=== PATIENT | female | born 1930 | race Caucasian/White ===

== ENCOUNTER 2017-01-26 08:48 | Emergency (ER) | payer MEDICARE, OTHER ==
[2017-01-26 09:02] VITALS: BP 191/78
--- NOTE | 2017-01-26 10:11 | EDM.PDOC ---
ED HPI Trauma - General Chief Complaint: Lower Extremity Injury/Pain Stated Complaint: [facility] Time Seen by Provider: 01/26/17 10:10 - History of Present Illness INITIAL COMMENTS - FREE TEXT/NARRATIVE: 86-year-old female presents emergency room by EMS after falling. Patient has significant right hip pain she does not know why she fell. She bent forward to pickle cutter a stick and fell backwards. She did not have any lightheadedness or palpitations at the time. After this the patient could not get up and she scooted on her bottom to the front door and attempted to get help. Patient has a history of bilateral hip replacements. Allergies/ADRs: Allergies No Known Allergies Allergy (Verified 01/26/17 09:02) Home Medications: Ambulatory Orders Bisoprolol/Hydrochlorothiazide [Ziac 2.5-6.25 MG] 1 tab PO DAILY 01/26/17 [ Confirmed 01/26/17] Gabapentin [Neurontin] 100 mg PO TID 01/26/17 [Confirmed 01/26/17] Levothyroxine [Synthroid] 100 mcg PO ACBREAKFAST 01/26/17 [Confirmed 01/26/17] Lisinopril 20 mg PO DAILY 01/26/17 [Confirmed 01/26/17] Potassium Chloride 10 meq PO DAILY 01/26/17 [Confirmed 01/26/17] Simvastatin [Zocor] 40 mg PO BEDTIME 01/26/17 [Confirmed 01/26/17] busPIRone [Buspar] 5 mg PO TID 01/26/17 [Confirmed 01/26/17] glyBURIDE [Glyburide] 5 mg PO DAILY 01/26/17 [Confirmed 01/26/17] traZODone 1 tab PO BEDTIME PRN 01/26/17 [Confirmed 01/26/17] Past Medical History HEENT History: Reports: Hard of hearing, Impaired vision Other HEENT History: wears corrective lenses Cardiovascular History: Reports: High cholesterol, Hypertension Genitourinary History: Reports: Diabetic nephropathy 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 Denies: Shortness of Breath Cardiovascular: Reports: no symptoms. Denies: chest pain, edema GI/Abdominal: Reports: No symptoms. Denies: Abdominal pain, Constipation, Diarrhea, Nausea, Vomiting Genitourinary: Reports: no symptoms. Denies: dysuria, hematuria, painful urination Musculoskeletal: Reports: no symptoms Trauma Exam - Physical Exam Exam: See Below Exam Limited By: No limitations General Appearance: Reports: alert, no apparent distress Head: Reports: atraumatic, normocephalic Neck: Reports: non-tender, full range of motion, normal inspection. 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, no motor/sensory deficits (Kelechi limited because of right hip pain) Skin: Reports: Other (She has some abrasions over her left knuckles as a result of the fall otherwise has good range of motion of these digits) - [place] Coma Score Best Eye Response ([place]): (4) open spontaneously Best Verbal Response ([place]): (5) oriented Best Motor Response ([place]): (6) obeys commands EKG INTERPRETATION EKG Date: 01/26/17 Rhythm: NSR [place]: normal P-wave: present QRS: normal ST-T: other (Nonspecific nondiagnostic ST depression inferiorly laterally with ST elevation is nondiagnostic in aVR) Course - Vital Signs Last Recorded V/S: Last Vital Signs Temp 37.1 C 01/26/17 08:57 Pulse 78 01/26/17 08:57 Resp 18 01/26/17 08:57 BP 191/78 H 01/26/17 08:57 Pulse Ox 94 L 01/26/17 08:57 - Orders/Labs/Meds Orders: Active Orders 24 hr Category Date Time Status EKG Documentation Completion [RC] STAT Care 01/26/17 12:18 Active Lactated Ringers [Ringers, Lactated] 1,000 ml Med 01/26/17 12:45 Active IV ASDIRECTED Medication Orders Lactated Ringer's (Ringers, Lactated) 1,000 mls @ 75 mls/hr IV ASDIRECTED FELICIA Last Admin: 01/26/17 13:14 Dose: 75 mls/hr Labs: Laboratory Tests 01/26/17 01/26/17 01/26/17 Range/Units 11:35 12:30 12:32 WBC 13.66 H (3.98-10.04) K/mm3 RBC 4.34 (3.98-5.22) M/mm3 Hgb 14.0 (11.2-15.7) gm/L Hct 41.6 (34.1-44.9) % MCV 95.9 H (79.4-94.8) fl MCH 32.3 H (25.6-32.2) pg MCHC 33.7 (32.2-35.5) g/dl RDW Std Deviation 43.8 (36.4-46.3) fL Plt Count 172 L (182-369) K/mm3 MPV 9.4 (9.4-12.3) fl Neutrophils % (Manual) 96 H (40-60) % Band Neutrophils % 0 (0-10) % Lymphocytes % (Manual) 2 L (20-40) % Atypical Lymphs % 0 % Monocytes % (Manual) 2 (2-10) % Eosinophils % (Manual) 0 L (0.7-5.8) % Basophils % (Manual) 0 L (0.1-1.2) Differential Comment See note Platelet Estimate Adequate RBC Morph Comment Normal Sodium (136-145) mEq/L Potassium (3.5-5.1) mEq/L Chloride (98-107) mEq/L Carbon Dioxide (21-32) mEq/L Anion Gap (5-15) BUN (7-18) mg/dL Creatinine (0.55-1.02) mg/dL Est Cr Clr Drug Dosing mL/min Estimated GFR (MDRD) (>60) mL/min BUN/Creatinine Ratio (14-18) Glucose (83-115) mg/dL Calcium (8.5-10.1) mg/dL Total Bilirubin (0.2-1.0) mg/dL AST (15-37) U/L ALT (14-59) U/L Alkaline Phosphatase (46-116) U/L Troponin I 0.040 (0.00-0.056) ng/mL Total Protein (6.4-8.2) g/dl Albumin (3.4-5.0) g/dl Globulin gm/dL Albumin/Globulin Ratio (1-2) Urine Color Yellow (Yellow) Urine Appearance Clear (Clear) Urine pH 7.0 (5.0-8.0) Ur Specific [place] 1.025 (1.005-1.030) Urine Protein 3+ H (Negative) Urine Glucose (UA) Trace H (Negative) Urine Ketones Negative (Negative) Urine Occult Blood Trace-lysed H (Negative) Urine Nitrite Negative (Negative) Urine Bilirubin Negative (Negative) Urine Urobilinogen 0.2 (0.2-1.0) Ur Leukocyte Esterase Negative (Negative) Urine RBC 0-5 (0-5) /hpf Urine WBC 0-5 (0-5) /hpf Ur Epithelial Cells 0-5 (0-5) /hpf Urine Bacteria Few (FEW) /hpf Urine Mucus Few (FEW) /hpf 01/26/17 Range/Units 12:32 WBC (3.98-10.04) K/mm3 RBC (3.98-5.22) M/mm3 Hgb (11.2-15.7) gm/L Hct (34.1-44.9) % MCV (79.4-94.8) fl MCH (25.6-32.2) pg MCHC (32.2-35.5) g/dl RDW Std Deviation (36.4-46.3) fL Plt Count (182-369) K/mm3 MPV (9.4-12.3) fl Neutrophils % (Manual) (40-60) % Band Neutrophils % (0-10) % Lymphocytes % (Manual) (20-40) % Atypical Lymphs % % Monocytes % (Manual) (2-10) % Eosinophils % (Manual) (0.7-5.8) % Basophils % (Manual) (0.1-1.2) Differential Comment Platelet Estimate RBC Morph Comment Sodium 142 (136-145) mEq/L Potassium 3.5 (3.5-5.1) mEq/L Chloride 104 (98-107) mEq/L Carbon Dioxide 27 (21-32) mEq/L Anion Gap 14.5 (5-15) BUN 14 (7-18) mg/dL Creatinine 0.9 (0.55-1.02) mg/dL Est Cr Clr Drug Dosing 42.02 mL/min Estimated GFR (MDRD) 59 (>60) mL/min BUN/Creatinine Ratio 15.6 (14-18) Glucose 202 H (83-115) mg/dL Calcium 9.1 (8.5-10.1) mg/dL Total Bilirubin 1.5 H (0.2-1.0) mg/dL AST 29 (15-37) U/L ALT 35 (14-59) U/L Alkaline Phosphatase 75 (46-116) U/L Troponin I (0.00-0.056) ng/mL Total Protein 6.6 (6.4-8.2) g/dl Albumin 4.0 (3.4-5.0) g/dl Globulin 2.6 gm/dL Albumin/Globulin Ratio 1.5 (1-2) Urine Color (Yellow) Urine Appearance (Clear) Urine pH (5.0-8.0) Ur Specific [place] (1.005-1.030) Urine Protein (Negative) Urine Glucose (UA) (Negative) Urine Ketones (Negative) Urine Occult Blood (Negative) Urine Nitrite (Negative) Urine Bilirubin (Negative) Urine Urobilinogen (0.2-1.0) Ur Leukocyte Esterase (Negative) Urine RBC (0-5) /hpf Urine WBC (0-5) /hpf Ur Epithelial Cells (0-5) /hpf Urine Bacteria (FEW) /hpf Urine Mucus (FEW) /hpf Meds: Medications Generic Name Dose Route Start Last Admin Trade Name Freq PRN Reason Stop Dose Admin Lactated Ringer's 1,000 mls @ 75 mls/hr 01/26/17 12:45 01/26/17 13:14 Ringers, Lactated IV 75 mls/hr ASDIRECTED [facility] Administration - Re-Assessments/Exams Free Text/Narrative Re-Assessment/Exam: 01/26/17 12:27 X-ray shows a fracture at the distal end of the prosthesis of the right hip. Minimally displaced. Patient was seen by Dr. Casey today with orthopedics who recommends admission to the hospitalist service and he anticipates surgical repair on Thursday. The patient seems to be otherwise doing okay. She is not having pain and needs to be treated at this time but we will monitor for this lab work and EKG pending. We are waiting to find a hospital bed for her. 01/26/17 15:43 Patient situation discussed with the hospitalist, Dr. Maharaj, who discussed situation with Dr. Casey today and given the complexity of the surgery anticipated and her medical problems they felt the patient would have more appropriate care in [place]. Patient's case was discussed with Dr. Laboy hospitalist at [facility] in [place] who discussed the situation with on-call orthopedics in [place] and they both agree with excepting the patient. Departure - Departure Time of Disposition: 12:29 Disposition: DC/[facility]fer to [facility] 02 Clinical Impression: Periprosthetic fracture around internal prosthetic right hip joint Referrals: Anjali Naayk NP [Primary Care Provider] - Forms: ED Department Discharge - My Orders Last 24 Hours: My Active Orders 01/26/17 12:18 EKG Documentation Completion [RC] STAT 01/26/17 12:45 Lactated Ringers [Ringers, Lactated] 1,000 ml IV ASDIRECTED - Assessment/Plan Last 24 Hours: My Active Orders 01/26/17 12:18 EKG Documentation Completion [RC] STAT 01/26/17 12:45 Lactated Ringers [Ringers, Lactated] 1,000 ml IV ASDIRECTED
--- NOTE | 2017-01-26 10:48 | CR ---
Pelvis and right hip: AP view of the pelvis was obtained as well as AP and frog-leg lateral views and lateral view of the right hip. Comparison: No previous study. Bilateral hip prosthesis are seen. Fracture is identified off the distal stem of a right hip prosthesis extending through the lateral cortex. No significant displacement seen at this time. Heterotopic bone noted around the right hip. Bony structures are osteopenic. Degenerative change is seen within the lumbar spine. Vascular calcification is seen. Impression: 1. Acute fracture off the distal femoral stem of a right hip prosthesis. 2. Other incidental findings as noted above. Diagnostic code #3
[2017-01-26] MEDS ORDERED: Lactated Ringers 1,000 ML IV SCH (12:45)
[2017-01-26] MEDS ORDERED: Ondansetron 4 MG/2 ML SDV IVPUSH ONE (15:53)
[2017-01-26] MEDS ORDERED: HYDROmorphone 0.5 MG/0.5 ML Syringe IVPUSH ONE (15:54)
== END 2017-01-26 16:24 ==
LOC: JD.ED 08:48
DX: S72.401A Unspecified fracture of lower end of right femur, initial encounter for closed fracture (principal); M97.01XA Periprosthetic fracture around internal prosthetic right hip joint, initial encounter; W18.39XA Other fall on same level, initial encounter; Y93.89 Activity, other specified; Y92.017 Garden or yard in single-family (private) house as the place of occurrence of the external cause; E78.00 Pure hypercholesterolemia, unspecified; I10 Essential (primary) hypertension; E11.21 Type 2 diabetes mellitus with diabetic nephropathy; Z79.899 Other long term (current) drug therapy
CPT/HCPCS: 36415; 51702; 73502; 80053; 81001; 82962; 84484; 85025; 93005; 96361; 96374; 96375; 99285; J1170; J2405; J7120; 99284

== ENCOUNTER 2017-09-30 07:55 | Emergency (ER) | payer MEDICARE, OTHER ==
[2017-09-30] MEDS ORDERED: Sodium Chloride 0.9% 10 ML Syringe FLUSH PRN (08:43)
[2017-09-30] MEDS ORDERED: Ondansetron 4 MG/2 ML SDV IVPUSH ONE (08:44)
[2017-09-30] MEDS ORDERED: HYDROmorphone 0.5 MG/0.5 ML Syringe IVPUSH ONE (08:45)
[2017-09-30] MEDS ORDERED: Labetalol 100 MG/20 ML MDV IVPUSH ONE (08:46)
[2017-09-30 09:16] VITALS: BP 176/71
[2017-09-30] MEDS ORDERED: Iopamidol 755 Mg/ML 100 ML Bottle IVPUSH ONE (10:24)
[2017-09-30] MEDS ORDERED: Sodium Chloride 0.9% 10 ML Syringe FLUSH ONE (10:24)
[2017-09-30] MEDS ORDERED: Sodium Chloride 0.9% 100 ML IV SCH (10:30)
--- NOTE | 2017-09-30 10:44 | CR ---
Chest: Two views of the chest were obtained. Comparison: Prior chest x-ray of 02/01/11. Lungs are hyperinflated compatible with emphysematous change. Small nodule noted within the right midlung which is stable from prior exam and therefore incidental. No acute infiltrates are seen. Scattered degenerative spurring is noted within the spine with mild scoliosis. Heart size appears within normal limits. Impression: 1. Emphysematous change. Nothing acute is appreciated on two-view chest x-ray. Diagnostic code #2
[2017-09-30] MEDS ORDERED: Metoclopramide 10 MG/2 ML SDV IVPUSH ONE (11:05)
--- NOTE | 2017-09-30 11:20 | CT ---
CT chest Technique: Multiple axial sections through the chest were obtained. Intravenous contrast was utilized. Study has been performed as a pulmonary angiogram protocol. Comparison: Previous chest x-ray performed earlier on the same day, no prior chest CT. Findings: Pulmonary arteries are well-opacified. No filling defects are seen to indicate pulmonary embolism. Mediastinum and hilar regions show no adenopathy or mass. Moderately severe coronary artery calcification is seen. Heart is enlarged. Small portion of the visualized upper abdominal structures appears within normal limits. 2 nodules are identified within the right lower lung. Larger nodule measures 7 mm and adjacent nodule also measures 7 mm. Very small subpleural nodule is noted within the right middle lobe measuring 2 mm. Additional nodule is seen within the superior segment of the right lower lobe measuring 4.7 mm Coarse lung markings are noted within both lung bases most likely representing mild fibrosis with scarring. Lungs otherwise are clear. Bone window setting show scattered degenerative endplate spurring within the spine. Impression: 1. Pulmonary nodules within the right chest. Given the patient's age these are likely incidental. 2. No findings of pulmonary embolism. 3. Moderately severe coronary artery calcification and cardiomegaly. Diagnostic code #3
--- NOTE | 2017-09-30 11:51 | EDM.PDOC ---
ED HPI GENERAL MEDICAL PROBLEM - General Chief Complaint: Back Pain or Injury Stated Complaint: UPPER BACK PAIN Time Seen by Provider: 09/30/17 08:36 Source of Information: Reports: Patient History Limitations: Reports: No Limitations - History of Present Illness INITIAL COMMENTS - FREE TEXT/NARRATIVE: The patient presents with left upper back pain. This has been there for about 2 weeks. She denies any trauma. She did not fall, lift or twist. She has no fever, chest pain, cough, shortness of breath, abdominal pain, nausea, vomiting , numbness or weakness. She says the pain is worse at night when she is laying down. Onset: Gradual Duration: Week(s): (2) Location: Reports: Back (Upper left) Quality: Reports: Sharp Severity: Moderate Improves with: Reports: None Worsens with: Reports: Other (Laying down at night) Associated Symptoms: Reports: No Other Symptoms - Related Data Allergies Allergy/AdvReac Type Severity Reaction Status Date / Time No Known Allergies Allergy Verified 09/30/17 08:08 Home Meds: Home Meds Acetaminophen 2 tab PO Q4H PRN 09/30/17 [History] Acetaminophen [Tylenol] 650 mg PO 2100 09/30/17 [History] Aspirin [[place] Aspirin] 81 mg PO DAILY 09/30/17 [History] Aspirin/Sod Bicarb/Citric Acid [[place]iyah-Qu[place] Original] 2 tab PO BID PRN [History] Bisoprolol/Hydrochlorothiazide [Ziac 2.5-6.25 MG] 1 tab PO QAM 09/30/17 [History ] Carboxymethylcellulose Sodium [Refresh Tears] 1 drop EYEBOTH BID PRN 09/30/17 [ History] Dicyclomine [Bentyl] 10 mg PO TID PRN 09/30/17 [History] Furosemide [Lasix] 20 mg PO DAILY 09/30/17 [History] Gabapentin [Neurontin] 100 mg PO TID 09/30/17 [History] Levothyroxine Sodium [Tirosint] 100 mcg PO DAILY 09/30/17 [History] Loperamide HCl [Imodium A-D] 2 mg PO ASDIRECTED PRN 09/30/17 [History] Losartan Potassium [Cozaar] 50 mg PO DAILY 09/30/17 [History] Lutein/Minerals/Vit A,C & E [I-Lobito] 1 tab PO DAILY 09/30/17 [History] Multivitamin [Multi-Vitamin Daily] 1 tab PO DAILY 09/30/17 [History] Mylanta 2 tsp PO Q4H PRN 09/30/17 [History] Potassium Chloride 10 meq PO DAILY 09/30/17 [History] Simvastatin [Zocor] 40 mg PO DAILY 09/30/17 [History] SitaGLIPtin [Januvia] 100 mg PO DAILY 09/30/17 [History] busPIRone [Buspar] 5 mg PO TID 09/30/17 [History] glipiZIDE [Glucotrol] 10 mg PO BID 09/30/17 [History] guaiFENesin/Dextromethorphan [Mucinex Dm ER 600-30 mg Tablet] 1 tab PO BID PRN 09/30/17 [History] traMADol HCl [Ultram] 50 mg PO DAILY 09/30/17 [History] traZODone 50 mg PO BEDTIME 09/30/17 [History] Past Medical History HEENT History: Reports: Hard of Hearing, Impaired Vision Other HEENT History: wears corrective lenses Cardiovascular History: Reports: High Cholesterol, Hypertension Genitourinary History: Reports: Diabetic Nephropathy, 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 Psychiatric History: Reports: Anxiety, Depression Endocrine/Metabolic History: Reports: Diabetes, Type II - Past Surgical History HEENT Surgical History: Reports: Cataract Surgery Cardiovascular Surgical History: Reports: None GI Surgical History: Reports: Colonoscopy Female Surgical History: Reports: None Musculoskeletal Surgical History: Reports: Hip Replacement Social & Family History - Family History Family Medical History: Noncontributory - Tobacco Use Smoking Status *Q: Never Smoker Second Hand Smoke Exposure: No - Caffeine Use Caffeine Use: Reports: Coffee, Soda - Recreational Drug Use Recreational Drug Use: No ED ROS GENERAL - Review of Systems Review Of Systems: See Below Constitutional: Reports: No Symptoms HEENT: Reports: No Symptoms Respiratory: Reports: No Symptoms Cardiovascular: Reports: No Symptoms Endocrine: Reports: No Symptoms GI/Abdominal: Reports: No Symptoms : Reports: No Symptoms Musculoskeletal: Reports: Back Pain (Upper left) ED EXAM, UPPER BACK/NECK PAIN - Physical Exam Exam: See Below Exam Limited By: No Limitations General Appearance: Alert, No Apparent Distress Ears Exam: Normal External Exam Nose Exam: Normal Inspection Head Exam: Atraumatic, Normocephalic Neck Exam: Non-Tender, Normal Alignment, Normal Inspection Cardiovascular/Respiratory: Regular Rate, Rhythm, No M/R/G, Normal Peripheral Pulses, Normal Breath Sounds, No Respiratory Distress GI/Abdominal: Soft, Non-Tender, No Organomegaly, No Mass Back Exam: Other (Tenderness upon palpation to the left upper scapula to the spine) EKG INTERPRETATION EKG Date: 09/30/17 Time: 09:24 Rhythm: NSR Rate (Beats/Min): 63 [place]: Normal P-Wave: Present QRS: Normal ST-T: Normal QT: Normal Course - Vital Signs Last Recorded V/S: Last Vital Signs Temp 97.5 F 09/30/17 08:08 Pulse 61 09/30/17 09:15 Resp 16 09/30/17 08:08 BP 176/71 H 09/30/17 09:15 Pulse Ox 96 09/30/17 08:08 - Orders/Labs/Meds Orders: Active Orders 24 hr Category Date Time Status Cardiac Monitoring [RC] . DIRECTED Care 09/30/17 08:43 Active EKG Documentation Completion [RC] STAT Care 09/30/17 08:44 Active Peripheral IV Care [RC] . DIRECTED Care 09/30/17 08:44 Active Sodium Chloride 0.9% [Normal Saline] 100 ml Med 09/30/17 10:30 Active IV ASDIRECTED Sodium Chloride 0.9% [Saline Flush] Med 09/30/17 08:43 Active 10 ml FLUSH ASDIRECTED PRN Peripheral IV Insertion Adult [OM.PC] Stat Oth 09/30/17 08:43 Ordered Medication Orders Sodium Chloride (Normal Saline) 100 mls @ 60 mls/hr IV ASDIRECTED FELICIA Last Admin: 09/30/17 10:36 Dose: 60 mls/hr Sodium Chloride (Saline Flush) 10 ml FLUSH ASDIRECTED PRN PRN Reason: Keep Vein Open Last Admin: 09/30/17 09:07 Dose: 10 ml Labs: Laboratory Tests 09/30/17 09/30/17 09/30/17 Range/Units 09:00 09:00 09:00 WBC 10.42 H (3.98-10.04) K/mm3 RBC 4.56 (3.98-5.22) M/mm3 Hgb 14.4 (11.2-15.7) gm/L Hct 43.6 (34.1-44.9) % MCV 95.6 H (79.4-94.8) fl MCH 31.6 (25.6-32.2) pg MCHC 33.0 (32.2-35.5) g/dl RDW Std Deviation 43.6 (36.4-46.3) fL Plt Count 219 (182-369) K/mm3 MPV 9.2 L (9.4-12.3) fl Neut % (Auto) 77.8 H (34.0-71.1) % Lymph % (Auto) 14.2 L (19.3-51.7) % [place] % (Auto) 6.2 (4.7-12.5) % Eos % (Auto) 1.5 (0.7-5.8) Baso % (Auto) 0.1 (0.1-1.2) % Neut # (Auto) 8.10 H (1.56-6.13) K/mm3 Lymph # (Auto) 1.48 (1.18-3.74) K/mm3 [place] # (Auto) 0.65 H (0.24-0.36) K/mm3 Eos # (Auto) 0.16 (0.04-0.36) K/mm3 Baso # (Auto) 0.01 (0.01-0.08) K/mm3 D-Dimer, Quantitative 0.60 H (0.19-0.59) mg/L Sodium 141 (136-145) mEq/L Potassium 3.9 (3.5-5.1) mEq/L Chloride 102 (98-107) mEq/L Carbon Dioxide 31 (21-32) mEq/L Anion Gap 11.9 (5-15) BUN 13 (7-18) mg/dL Creatinine 0.9 (0.55-1.02) mg/dL Est Cr Clr Drug Dosing 40.45 mL/min Estimated GFR (MDRD) 59 (>60) mL/min BUN/Creatinine Ratio 14.4 (14-18) Glucose 171 H (83-115) mg/dL Calcium 10.0 (8.5-10.1) mg/dL Total Bilirubin 1.6 H (0.2-1.0) mg/dL AST 26 (15-37) U/L ALT 37 (14-59) U/L Alkaline Phosphatase 89 (46-116) U/L Troponin I < 0.017 (0.00-0.056) ng/mL Total Protein 7.8 (6.4-8.2) g/dl Albumin 4.2 (3.4-5.0) g/dl Globulin 3.6 gm/dL Albumin/Globulin Ratio 1.2 (1-2) Meds: Medications Generic Name Dose Route Start Last Admin Trade Name Freq PRN Reason Stop Dose Admin Sodium Chloride 100 mls @ 60 mls/hr 09/30/17 10:30 09/30/17 10:36 Normal Saline IV 60 mls/hr ASDIRECTED FELICIA Administration Sodium Chloride 10 ml 09/30/17 08:43 09/30/17 09:07 Saline Flush FLUSH 10 ml ASDIRECTED PRN Administration Keep Vein Open Discontinued Medications Generic Name Dose Route Start Last Admin Trade Name Freq PRN Reason Stop Dose Admin Hydromorphone HCl 0.5 mg 09/30/17 08:45 09/30/17 09:06 Dilaudid IVPUSH 09/30/17 08:46 0.5 mg ONETIME ONE Administration Iopamidol 100 ml 09/30/17 10:24 09/30/17 10:36 [id number] (76%) IVPUSH 09/30/17 10:25 100 ml ONETIME ONE Administration Labetalol HCl 20 mg 09/30/17 08:46 09/30/17 09:15 Normodyne IVPUSH 09/30/17 08:47 20 mg ONETIME ONE Administration Protocol Metoclopramide HCl 10 mg 09/30/17 11:05 09/30/17 11:09 Reglan IVPUSH 09/30/17 11:06 10 mg ONETIME ONE Administration Ondansetron HCl 4 mg 09/30/17 08:44 09/30/17 09:04 Zofran IVPUSH 09/30/17 08:45 4 mg ONETIME ONE Administration Sodium Chloride 10 ml 09/30/17 10:24 09/30/17 10:36 Saline Flush FLUSH 09/30/17 10:25 10 ml ONETIME ONE Administration - Re-Assessments/Exams Free Text/Narrative Re-Assessment/Exam: 09/30/17 11:49 I ordered an EKG that showed a NSR with no acute changes. 09/30/17 11:50 I also ordered a CXR, labs, dilaudid and zofran. She got a little nauseated with the dilaudid. Her CXR showed some arthritis. Her WBC was slightly elevated at 10.46. Her CMP looks good. Her troponin was negative. Her D- dimer was elevated at 0.6. I ordered a CT of her chest and that showed pulmonary nodules within the right chest. Given the patient's age these are likely incidental. No findings of PE. Moderately severe coronary artery calcification and cardiomegaly. This appears to be upper back pain from some arthritis. She has tylenol and ultram at home. I will also refer her to PT. 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 You can have that every 4 hours as needed. Take ultram 50mg every 6 hours as needed for pain. Follow up with your provider. Follow up with physical therapy. - My Orders Last 24 Hours: My Active Orders 09/30/17 08:43 Cardiac Monitoring [RC] . DIRECTED Sodium Chloride 0.9% [Saline Flush] 10 ml FLUSH ASDIRECTED PRN Peripheral IV Insertion Adult [OM.PC] Stat 09/30/17 08:44 EKG Documentation Completion [RC] STAT Peripheral IV Care [RC] . DIRECTED 09/30/17 10:30 Sodium Chloride 0.9% [Normal Saline] 100 ml IV ASDIRECTED - Assessment/Plan Last 24 Hours: My Active Orders 09/30/17 08:43 Cardiac Monitoring [RC] . DIRECTED Sodium Chloride 0.9% [Saline Flush] 10 ml FLUSH ASDIRECTED PRN Peripheral IV Insertion Adult [OM.PC] Stat 09/30/17 08:44 EKG Documentation Completion [RC] STAT Peripheral IV Care [RC] . DIRECTED 09/30/17 10:30 Sodium Chloride 0.9% [Normal Saline] 100 ml IV ASDIRECTED
== END 2017-09-30 12:20 | disposition home or self-care (01) ==
LOC: JD.ED 07:55
DX: M47.814 Spondylosis without myelopathy or radiculopathy, thoracic region (principal); I10 Essential (primary) hypertension; E11.21 Type 2 diabetes mellitus with diabetic nephropathy; E78.00 Pure hypercholesterolemia, unspecified
CPT/HCPCS: 36415; 71020; 71275; 80053; 84484; 85025; 85379; 93005; 96374; 96375; 99285; J1170; J2405; J2765; J7030; J7050; Q9967; 93010; 99284-25